=== PATIENT | female | born 1980 | race Caucasian/White ===

== ENCOUNTER 2021-04-29 07:52 | Emergency (ER) | payer OTHER ==
[~2021-04-29] VITALS: Ht 167.6 cm; Wt 85.5 kg
[2021-04-29] MEDS ORDERED: IBU800 M1 PO (08:10)
[2021-04-29 08:35] LABS: BASO # 0.03 (0.02-0.10); EOS # 0.12 (0.04-0.40); EOS % 1.5 % (1.0-5.0); HEMATOCRIT 40.3 % (37.0-47.0); HEMOGLOBIN 12.9 g/dL (12.5-16.0); MEAN CELL VOLUME 89 fl (78-100); MEAN CORPUSCULAR HEMOGLOBIN 29 pg (27-31); MEAN CORPUSCULAR HGB CONC 32 g/dL (33-37); MEAN PLATELET VOLUME 10.1 fl (7.4-10.4); MONO # 0.62 (0.20-0.80); NEU # 5.49 (1.40-6.50); PLATELET COUNT 256 K/mm3 (130-400); RED BLOOD COUNT 4.51 M/mm3 (4.10-5.30); RED CELL DISTRIBUTION WIDTH 13.2 % (11.5-14.5)
[2021-04-29 08:41] LABS: CALCIUM 9.6 mg/dL (8.3-10.5)
[2021-04-29 08:44] LABS: TOTAL BILIRUBIN 0.3 mg/dL (0.2-1.2)
[2021-04-29 08:50] LABS: URINE APPEARANCE CLEAR; URINE BILIRUBIN NEGATIVE (NEGATIVE); URINE BLOOD NEGATIVE (NEGATIVE); URINE COLOR YELLOW; URINE GLUCOSE NEGATIVE (NEGATIVE); URINE KETONE NEGATIVE (NEGATIVE); URINE LEUKOCYTE ESTERASE NEGATIVE (NEGATIVE); URINE NITRATE NEGATIVE (NEGATIVE); URINE PROTEIN(semi-quant) NEGATIVE (NEGATIVE); URINE UROBILINOGEN NORMAL (NORMAL); URINE WBC 0-1 /hpf (0-3)
[2021-04-29] MEDS ORDERED: RIZATRIPTAN BENZ5 MG PO (09:28)
[2021-04-29] MEDS ORDERED: HYOSCYAMINE0.125 M8 SL (09:28)
[2021-04-29] MEDS ORDERED: TIZANIDINE2 MG PO (09:54)
[2021-04-29] MEDS ORDERED: CEPHALEXIN500 M1 PO (14:02)
[2021-04-29 14:26] VITALS: BP 127/83
== END 2021-04-29 14:26 | disposition home or self-care (01) ==
LOC: ED 07:52
PROVIDERS: Nurse Practitioner
DX: N12 Tubulo-interstitial nephritis, not specified as acute or chronic (principal); D25.9 Leiomyoma of uterus, unspecified; Z20.822 Contact with and (suspected) exposure to COVID-19
CPT/HCPCS: A4340; J0696; J2060; J2405; J3010; J7030; Q9967

== ENCOUNTER 2021-06-15 13:51 | Emergency (ER) | payer OTHER ==
[~2021-06-15] VITALS: Ht 167.6 cm; Wt 84.1 kg
[~2021-06-15 13:51] MED LIST: CEPHALEXIN500 M1 PO; HYOSCYAMINE0.125 M8 SL; IBU800 M1 PO; RIZATRIPTAN BENZ5 MG PO; TIZANIDINE2 MG PO
[2021-06-15] MEDS ORDERED: NORCO 325 MG-51 TA1 PO (14:53)
[2021-06-15 15:23] LABS: BASO # 0.04 K/mm3 (0.02-0.10); EOS # 0.33 K/mm3 (0.04-0.40); EOS % 4.4 % (1.0-5.0); HEMATOCRIT 38.4 % (37.0-47.0); HEMOGLOBIN 12.4 g/dL (12.5-16.0); LYMPH# 1.68 K/mm3 (1.50-4.00); MEAN CELL VOLUME 92 fl (78-100); MEAN CORPUSCULAR HEMOGLOBIN 30 pg (27-31); MEAN CORPUSCULAR HGB CONC 32 g/dL (33-37); MEAN PLATELET VOLUME 9.4 fl (7.4-10.4); MONO # 0.54 K/mm3 (0.20-0.80); NEU # 4.97 K/mm3 (1.40-6.50); PLATELET COUNT 243 K/mm3 (130-400); RED BLOOD COUNT 4.16 M/mm3 (4.10-5.30); RED CELL DISTRIBUTION WIDTH 13.6 % (11.5-14.5); WHITE BLOOD COUNT 7.6 K/mm3 (4.8-10.8)
[2021-06-15] MEDS ORDERED: TRIAMCINOLONE AC0.13 TP (16:16)
[2021-06-15 16:36] VITALS: BP 125/81
== END 2021-06-15 16:36 | disposition home or self-care (01) ==
LOC: ED 13:51
PROVIDERS: Family Medicine
DX: L25.8 Unspecified contact dermatitis due to other agents (principal); D25.9 Leiomyoma of uterus, unspecified; N12 Tubulo-interstitial nephritis, not specified as acute or chronic; G43.909 Migraine, unspecified, not intractable, without status migrainosus; Z79.899 Other long term (current) drug therapy

== ENCOUNTER 2024-06-02 08:00 | Outpatient (RCR) | payer OTHER ==
[~2024-06-02 08:00] MED LIST changes: +NORCO 325 MG-51 TA1 PO; +TRIAMCINOLONE AC0.13 TP
== END 2024-06-15 18:00 | disposition home or self-care (01) ==
LOC: PT 08:00
DX: M25.511 Pain in right shoulder (principal); Z98.890 Other specified postprocedural states